=== PATIENT | female | born 2005 | race Caucasian/White ===

== ENCOUNTER 2024-09-23 18:51 | Emergency (ER) | payer OTHER, SELFPAY ==
[2024-09-23 19:08] VITALS: BP 118/74; PULSE 89; RESP 20; TEMP 36.9; O2SAT 99
[2024-09-23 19:09] VITALS: BP 125/78; PULSE 95; RESP 20; TEMP 36.9; O2SAT 99; BMI 24.9
--- NOTE | 2024-09-23 19:32 | CRLHL7_ITS ---
For Patients: As a result of the Century Cures Act, medical imaging exams and procedure reports are released immediately into your electronic medical record. You may view this report before your referring provider. If you have questions, please contact your health care provider. INDICATION: Congestion, fever, shortness of breath. TECHNIQUE: Chest 2 views. COMPARISON: None. FINDINGS: Cardiovascular and mediastinum: Heart size and vasculature are normal in caliber and appearance. Lungs and pleural spaces: No focal consolidation, pleural effusion, or pneumothorax. Bones and soft tissues: Unremarkable for age. IMPRESSION: No evidence of an acute pulmonary process. Dictated by German Zee MD @ 09/23/2024 8:10:59 PM (Electronically Signed)
[2024-09-23 19:52] LABS: PCR FLU A POSITIVE PCR FLU A (Negative); PCR FLU B Negative PCR FLU B (Negative); PCR RSV Negative PCR RSV (Negative); SARS PCR* Negative SARS-CoV-2 (Negative)
--- NOTE | 2024-09-23 20:01 | ED.FEVER ---
HPI - Fever General Date Seen: 09/23/24 Chief Complaint: Fever Stated Complaint: Flu like symptoms wont go away Time Seen by Provider: 09/23/24 19:05 Source: patient Mode of arrival: ambulatory Limitations: no limitations History of Present Illness HPI Narrative: Patient is a 19-year-old female presenting to the emergency department for concerns of flu-like symptoms. States she has a friend who had similar symptoms but they were not as bad. Symptoms have been going on for the past 3 days. She states every time she feels like she is getting better she developed fever again. Has been having congestion and coughing up some yellowish mucus. Has also had rhinorrhea. Denies any chest pain. States she will occasionally feel some mild shortness of breath but does not feel any at this time. Took ibuprofen today which helped with her symptoms. She took this at around 15:00. Denies any history of lung disease. Also states she has been having a sore throat today. Has not noticed any changes in her voice. Initially was painful swallow earlier but she drink a lot of orange juice today and she states it feels better now. Review of Systems Narrative Pertinent systems reviewed and were negative unless stated in HPI Exam Narrative Exam Narrative: Const: Well-nourished, Well-developed, in mild distress Eyes: PERRL, no conjunctival injection, and symmetrical lids HENT: Atraumatic external nose and ears. Moist mucous membranes. Uvula midline, no tonsillar exudates or swelling. Mild erythema in the posterior oropharynx Neck: Symmetric, trachea midline, No thyromegaly. CVS: RRR, No murmurs or gallops. Peripheral pulses 2+ and equal in all extremities RESP: Unlabored respiratory effort. Clear to auscultation bilaterally. GI: Nontender/Nondistended, No rebound or guarding. MSK:Extremities w/o deformity, Normal Active ROM Skin: Warm, Dry. No rashes or lesions. Neuro: Normal Muscle tone, No focal neurological deficits. Psych: Awake, Alert, & Oriented x3. Appropriate mood and affect. Const Vital Signs, click to edit/add: Vital Signs - 24 hr 09/23/24 19:09 Temperature 98.4 F Pulse Rate [Right Pulse Oximeter] 95 Respiratory Rate 20 Blood Pressure [Right Upper Arm] 125/78 Pulse Oximetry 99 Oxygen Delivery Method Room Air Course Vital Signs Vital signs: Initial Vital Signs Temperature 98.4 F 09/23/24 19:09 Temperature Source Temporal Artery Scan 09/23/24 19:09 Pulse Rate 95 09/23/24 19:09 Respiratory Rate 20 09/23/24 19:09 Blood Pressure 125/78 09/23/24 19:09 Blood Pressure Mean 93 09/23/24 19:09 Blood Pressure Position Sitting 09/23/24 19:09 Pulse Oximetry 99 09/23/24 19:09 Oxygen Delivery Method Room Air 09/23/24 19:09 Vital Signs Temperature 98.4 F 09/23/24 19:09 Pulse Rate 95 09/23/24 19:09 Respiratory Rate 20 09/23/24 19:09 Blood Pressure 125/78 09/23/24 19:09 Pulse Oximetry 99 09/23/24 19:09 Oxygen Delivery Method Room Air 09/23/24 19:09 Temperature 98.4 F 09/23/24 19:09 Pulse Rate 95 09/23/24 19:09 Respiratory Rate 20 09/23/24 19:09 Blood Pressure 125/78 09/23/24 19:09 Pulse Oximetry 99 09/23/24 19:09 Oxygen Delivery Method Room Air 09/23/24 19:09 MDM - Fever MDM Narrative Medical decision making narrative: Patient is a 19-year-old female presenting for flu-like symptoms. She is also having a sore throat. Patient is not showing signs of peritonsillar abscess, Tevin angina, retropharyngeal abscess,Lemierre disease or any other concerning oral pharynx or deep neck space abscesses. Imaging is not necessary. Will do a chest x-ray though to look for signs of pneumonia. Will also do a COVID/flu/RSV swab along with a strep test. Do not believe any further lab work is necessary as she is otherwise doing well. She is flu positive. Rest of viral swabs and strep test is negative. Chest x-ray reviewed by myself and the radiologist showed no acute abnormalities. She will be discharged she is agreeable to the plan. Lab Data Labs: Lab Results 09/23/24 09/23/24 Range/Units 19:10 19:34 SARS-CoV-2 (PCR) Negative SARS-CoV-2 (Negative) Influenza Type A (PCR) POSITIVE PCR FLU A A (Negative) Influenza Type B (PCR) Negative PCR FLU B (Negative) RSV (PCR) Negative PCR RSV (Negative) Group A Strep DNA NOT DETECTED (Not Detectd) Imaging Data Chest x-ray: Attestation: I have reviewed the pertinent imaging results. Radiologist's impression: No evidence of an acute pulmonary process. Dictated by German Zee MD @ 09/23/2024 8:10:59 PM Discharge Plan Discharge Clinical Impression: Influenza Patient Disposition: Home, Self-Care Condition: Stable Instructions: Influenza (DC) Additional Instructions: Quarantine at home until you go 24 hours without a fever. Return to emergency department for new or worsening symptoms Follow Up/Referrals: Provider,Not a Local [Primary Care Provider] - Stand Alone Forms: [employer] Info Instructions
[2024-09-23 20:10] LABS: Strep A DNA Probe* NOT DETECTED (Not Detectd)
[2024-09-23 20:20] VITALS: BP 118/74; PULSE 89; RESP 20; TEMP 36.9; O2SAT 99
== END 2024-09-23 20:20 | disposition home or self-care (01) ==
PROVIDERS: Emergency Provider Student in an Organized Health Care Education/Training Program
DX: J10.1 Influenza due to other identified influenza virus with other respiratory manifestations (principal)
CPT/HCPCS: 71046; 87631; 87651; 99283